=== PATIENT | male | born 1960 | race Caucasian/White ===

== ENCOUNTER 2017-01-01 17:06 | Emergency (ER) | payer BC, OTHER ==
--- NOTE | 2017-01-01 17:36 | ERPHSYRPT ---
- History of Present Illness Time Seen by Provider: 01/01/17 17:29 Source: patient Exam Limitations: no limitations Patient Subjective Stated Complaint: pt states he was treated for the flu 1 week ago. states he started on tamiflu on wednesday and began throwing up on . states he has had diarrhea a few times. Triage Nursing Assessment: pt pink, warm, dry. bowel sounds present in all 4 quads. pt afebrile. Physician History: The patient is a 56-year-old male with his complaining of nausea vomiting for 3 days and a small amount of diarrhea. He is lightheaded when he stands up. He hasn't had much to eat or drink and these past 3 days. 4 days ago he saw his primary care physician and was given Tamiflu for a clinical diagnosis of influenza. He began to feel better after 2 days on Tamiflu, but now has felt worse due to the vomiting. He denies any fever or chills or sore throat or cough. His past medical history is significant for high blood pressure and high cholesterol. Timing/Duration: day(s) (3) Severity: severe Modifying Factors: Improves With: eating Associated Symptoms: nausea, vomiting Allergies/Adverse Reactions: cefaclor [From [facility]] Allergy (Verified 01/01/17 17:19) Home Medications: Aspirin 81 mg PO DAILY 01/01/17 [History] Oseltamivir 75 mg [Tamiflu 75MG Capsule] 75 mg PO DAILY 01/01/17 [History] Pravastatin Sodium 20 mg PO HS 01/01/17 [History] Telmisartan/Hydrochlorothiazid [Telmisartan-Hctz 80-25 mg Tab] 1 each PO DAILY 01/01/17 [History] Hx Tetanus, Diphtheria Vaccination/Date Given: Yes ([place]) Hx Influenza Vaccination/Date Given: No Hx Pneumococcal Vaccination/Date Given: No Immunizations Up to Date: Yes - Review of Systems Constitutional: No Fever, No Chills Eyes: No Symptoms Ears, Nose, & Throat: No Symptoms Respiratory: No Cough, No Dyspnea Cardiac: No Chest Pain, No Edema, No Syncope Abdominal/Gastrointestinal: Nausea, Vomiting, Diarrhea Genitourinary Symptoms: No Dysuria Musculoskeletal: No Back Pain, No Neck Pain Skin: No Rash Neurological: No Dizziness, No Focal Weakness, No Sensory Changes Psychological: No Symptoms Endocrine: No Symptoms Hematologic/Lymphatic: No Symptoms Immunological/Allergic: No Symptoms All Other Systems: Reviewed and Negative - Past Medical History Pertinent Past Medical History: Yes Cardiac History: High Cholesterol, Hypertension - Past Surgical History Past Surgical History: Yes Other Surgical History: ear surgery - Social History Smoking Status: Never smoker Exposure to second hand smoke: No Drug Use: none Patient Lives Alone: No - Nursing Vital Signs Nursing Vital Signs: Initial Vital Signs Temperature 98.9 F Temperature Source Oral Pulse Rate 65 Respiratory Rate 18 Blood Pressure [Right Arm] 120/73 Pain Intensity 6 - Physical Exam General Appearance: mild distress Eye Exam: PERRL/EOMI, eyes nml inspection Ears, Nose, Throat Exam: normal ENT inspection, TMs normal, pharynx normal, moist mucous membranes Neck Exam: normal inspection, non-tender, supple, full range of motion Respiratory Exam: normal breath sounds, lungs clear, No respiratory distress Cardiovascular Exam: regular rate/rhythm, normal heart sounds, normal peripheral pulses Gastrointestinal/Abdomen Exam: soft, normal bowel sounds, No tenderness, No mass Rectal Exam: not done Back Exam: normal inspection, normal range of motion, No CVA tenderness, No vertebral tenderness Extremity Exam: normal inspection, normal range of motion, pelvis stable Neurologic Exam: alert, oriented x 3, cooperative, normal mood/affect, nml cerebellar function, nml station & gait, sensation nml, No motor deficits Skin Exam: normal color, warm, dry, No rash Lymphatic Exam: No adenopathy SpO2 Interpretation: normal SpO2: 96 Oxygen Delivery: Room Air Ordered Tests: Active Orders 24 hr Category Date Time Status IV Insertion STAT Care 01/01/17 17:40 Active CBC W DIFF Stat Lab 01/01/17 17:48 Completed CMP Stat Lab 01/01/17 17:48 Completed Medication Summary Discontinued Medications Generic Name Dose Route Start Last Admin Trade Name Freq PRN Reason Stop Dose Admin Sodium Chloride 1,000 mls @ 999 mls/hr 01/01/17 17:40 01/01/17 17:46 Sodium Chloride 0.9% 1000 Ml IV 01/01/17 18:40 999 mls/hr .Q1H1M STA Administration Sodium Chloride Confirm 01/01/17 17:44 Sodium Chloride 0.9% 1000 Ml Administered 01/01/17 17:45 Dose 1,000 mls @ ud .ROUTE .STK-MED ONE Ondansetron HCl 4 mg 01/01/17 17:40 01/01/17 17:46 Zofran 4 Mg/2 Ml Vial IV 01/01/17 17:41 4 mg STAT ONE Administration Ondansetron HCl Confirm 01/01/17 17:44 Zofran 4 Mg/2 Ml Vial Administered 01/01/17 17:45 Dose 4 mg .ROUTE .STK-MED ONE Lab/Rad Data: Laboratory Result Diagrams 01/01/17 17:48 01/01/17 17:48 Laboratory Results 01/01/17 01/01/17 Range/Units 17:48 17:48 WBC 4.0 (4.0-10.5) K/mm3 RBC 4.83 (4.1-5.6) M/mm3 Hgb 14.9 (12.5-18.0) gm/dl Hct 42.6 (42-50) % MCV 88.2 (78-100) fl MCH 30.8 (26-32) pg MCHC 35.0 (32-36) g/dl RDW 12.2 (11.5-14.0) % Plt Count 210 (150-450) K/mm3 MPV 9.6 H (6-9.5) fl Gran % 69.6 H (36.0-66.0) % Lymphocytes % 20.8 L (24.0-44.0) % Monocytes % 8.3 (0.0-12.0) % Eosinophils % 1.3 (0.00-5.0) % Basophils % 0.0 (0.0-0.4) % Basophils # 0 (0-0.4) Sodium 137 (136-145) mEq/L Potassium 3.7 (3.5-5.1) mEq/L Chloride 99 (98-107) mEq/L Carbon Dioxide 25.7 (21-32) mEq/L Anion Gap 15.8 H (5-15) MEQ/L BUN 17 (9-20) mg/dL Creatinine 1.21 (0.55-1.30) mg/dl Estimated GFR > 60 ML/MIN Glucose 126 H (70-110) MG/DL Calcium 9.1 (8.5-10.1) mg/dL Total Bilirubin 0.5 (0.2-1.0) mg/dL AST 46 H (15-37) U/L ALT 59 (12-78) U/L Alkaline Phosphatase 80 (46-116) U/L Serum Total Protein 7.4 (6.4-8.2) gm/dL Albumin 3.8 (3.4-5.0) g/dL - Progress Progress: improved Counseled pt/family regarding: lab results, diagnosis - Departure Time of Disposition: 18:57 Departure Disposition: Home Clinical Impression: Vomiting and diarrhea, Dehydration Condition: Stable Critical Care Time: No Additional Instructions: You had nausea and vomiting with some dehydration that was treated with Zofran 4 mg IV and IV fluids in the ER. You're given a prescription for Zofran 4 mg ODT to be taken every 6 hours as needed for nausea and vomiting. Begin with clear liquid fluids as diet and advance as tolerated. Prescriptions: Ondansetron [Zofran Odt] 4 mg PO Q6HPRN PRN #10 tab.rapdis PRN Reason: Nausea/Vomiting
[2017-01-01] MEDS ORDERED: Zofran 4 MG/2 ML VIAL IV ONE (17:40)
[2017-01-01] MEDS ORDERED: Sodium Chloride 0.9% 1000 ML 1,000 ML IV STA (17:40)
[2017-01-01] MEDS ORDERED: Zofran 4 MG/2 ML VIAL ONE (17:44)
[2017-01-01] MEDS ORDERED: Sodium Chloride 0.9% 1000 ML 1,000 ML ONE (17:44)
[2017-01-01 17:52] LABS: Eosinophil % 1.3 % (0.00-5.0); Granulocytes % 69.6 % (36.0-66.0); Lymphocytes % 20.8 % (24.0-44.0); Mean Cell Volume 88.2 fl (78-100); Mean Corpuscular Hemoglobin 30.8 pg (26-32); Mean Platelet Volume 9.6 fl (6-9.5); Monocytes % 8.3 % (0.0-12.0); Platelet Count 210 K/mm3 (150-450); Red Blood Count 4.83 M/mm3 (4.1-5.6); Red Cell Distribution Width 12.2 % (11.5-14.0)
[2017-01-01 18:12] LABS: ALBUMIN 3.8 g/dL (3.4-5.0); ALKALINE PHOSPHATASE 80 U/L (46-116); ANION GAP 15.8 MEQ/L (5-15); BILIRUBIN,TOTAL 0.5 mg/dL (0.2-1.0); BLOOD UREA NITROGEN 17 mg/dL (9-20); CHLORIDE 99 mEq/L (98-107); Carbon Dioxide 25.7 mEq/L (21-32); Glucose 126 MG/DL (70-110); Potassium 3.7 mEq/L (3.5-5.1); SGOT/AST 46 U/L (15-37); SGPT/ALT 59 U/L (12-78); SODIUM 137 mEq/L (136-145); Total Protein 7.4 gm/dL (6.4-8.2)
[2017-01-01 19:18] VITALS: BP 126/70; PULSE 70; O2SAT 100
== END 2017-01-01 19:18 | disposition home or self-care (01) ==
LOC: ED 17:06
DX: R11.2 Nausea with vomiting, unspecified (principal); E86.0 Dehydration; R19.7 Diarrhea, unspecified; R42 Dizziness and giddiness; I10 Essential (primary) hypertension; E78.00 Pure hypercholesterolemia, unspecified; Z79.899 Other long term (current) drug therapy
CPT/HCPCS: 36000; 36415; 80053; 85025; 96360; 96374; 99283; 99284; J2405

== ENCOUNTER 2019-07-10 09:23 | Emergency (ER) | payer BC ==
[2019-07-10] MEDS ORDERED: Hydromorphone 1 mg/ml Ampule IM ONE (09:42)
[2019-07-10] MEDS ORDERED: TORAdol 30 mg Injection IM ONE (09:42)
[2019-07-10] MEDS ORDERED: TORAdol 30 mg Injection ONE (09:48)
--- NOTE | 2019-07-10 09:48 | ERPHSYRPT ---
- History of Present Illness Time Seen by Provider: 07/10/19 09:35 Source: patient Exam Limitations: no limitations Patient Subjective Stated Complaint: pt states sat, he bent over to pet a dog and that started having lower back pain, he has tried ice,heat and tylenol. Triage Nursing Assessment: pt alert, arrived per , assist of one to get from wc to bed, resp easy, skin w/d/p Physician History: Patient has a history of degenerative disc disease in his lower back for over 37 year who bent over to pet a dog 2 days ago and has had low back pain since that time on the right side. Patient has no recent treatments for his back pain and he has no history of receiving epidural injections to help with his back pain. Timing/Duration: day(s) (2) Method of Injury: bending Quality: stabbing Back Pain Location: lumbar spine (right side) Back Pain Radiation: buttocks (right side) Severity of Pain-Max: severe Severity of Pain-Current: severe Modifying Factors: Improves With: immobilization, pain medication (Tylenol has helped), rest. Worsens With: movement Associated Symptoms: lower back pain, No fever, No chills, No sweating, No urinary incontinence, No loss of bowel control, No constipation, No nausea, No vomiting, No problems urinating, No light-headedness, No dizziness, No numbness in legs/feet, No weakness, No sensory/motor loss, No tingling in legs/feet, No muscle spasms Previous symptoms: same symptoms as today, no recent treatment Allergies/Adverse Reactions: cefaclor [From [facility]] Allergy (Verified 07/10/19 09:35) Home Medications: Aspirin 81 mg PO DAILY 01/01/17 [History] Pravastatin Sodium 20 mg PO HS 01/01/17 [History] Telmisartan/Hydrochlorothiazid [Telmisartan-Hctz 80-25 mg Tab] 1 each PO DAILY 01/01/17 [History] Hx Tetanus, Diphtheria Vaccination/Date Given: No Hx Influenza Vaccination/Date Given: No Hx Pneumococcal Vaccination/Date Given: No Immunizations Up to Date: Yes - Review of Systems Constitutional: No Fever, No Chills, No Fatigue Respiratory: No Cough, No Dyspnea Cardiac: No Chest Pain, No Palpitations, No Syncope Abdominal/Gastrointestinal: No Abdominal Pain, No Nausea, No Vomiting, No Diarrhea, No Constipation, No Hematemesis, No Hematochezia, No Melena Genitourinary Symptoms: No Dysuria, No Frequency, No Hematuria, No Urinary Retention, No Flank Pain, No Testicle Pain Musculoskeletal: Back Pain, No Arthralgias, No Neck Pain, No Joint Pain, No Joint Swelling, No Myalgias Skin: No Pruritis, No Rash Neurological: No Dizziness, No Focal Weakness, No Headache, No Lethargy, No Paralysis, No Parasthesia, No Sensory Changes, No Tremors Psychological: No Anxiety, No Emotional Lability Endocrine: No Polyuria, No Excessive Sweating Hematologic/Lymphatic: No Easy Bleeding, No Easy Bruising All Other Systems: Reviewed and Negative - Past Medical History Pertinent Past Medical History: Yes Cardiac History: Hypertension Musculoskeletal History: Degenerative Disk Disease - Past Surgical History Past Surgical History: Yes Other Surgical History: ears - Social History Smoking Status: Never smoker Exposure to second hand smoke: No Drug Use: none Patient Lives Alone: No - Nursing Vital Signs Nursing Vital Signs: Initial Vital Signs Temperature 97.8 F 07/10/19 09:26 Pulse Rate 73 07/10/19 09:26 Respiratory Rate 16 07/10/19 09:26 Blood Pressure 136/85 07/10/19 09:26 O2 Sat by Pulse Oximetry 97 07/10/19 09:26 Pain Scale Pain Intensity [Back] 10 Pain Intensity 2 - Physical Exam General Appearance: no apparent distress, alert Eye Exam: PERRL/EOMI, eyes nml inspection, No scleral icterus Ears, Nose, Throat Exam: pharynx normal, moist mucous membranes Neck Exam: normal inspection, non-tender, supple, full range of motion, No meningismus, No Brudzinski, No JVD, No limited range of motion, No midline tenderness Respiratory Exam: normal breath sounds, lungs clear, airway intact, No chest tenderness, No respiratory distress, No diminished breath sounds, No accessory muscle use, No prolonged expirations, No crackles/rales, No rhonchi, No wheezing , No stridor, No pleural rub Cardiovascular Exam: regular rate/rhythm, normal heart sounds, normal peripheral pulses, capillary refill <2 sec Gastrointestinal Exam: soft, normal bowel sounds, No tenderness, No distention, No mass, No guarding, No pulsatile mass, No rebound, No organomegaly Back Exam: normal inspection, decreased range of motion, muscle spasm (right lumbar paraspinal), No CVA tenderness, No vertebral tenderness Extremity Exam: normal inspection, normal range of motion, pelvis stable, No calf tenderness, No deformities, No ruby's sign, No inflammation, No swelling Neurologic Exam: alert, oriented x 3, cooperative, television servicer II-XII nml as tested, normal mood/affect, nml cerebellar function, sensation nml, No motor deficits, No sensory deficit, No motor weakness Skin Exam: normal color, warm, dry, rash, No petechiae, No cyanosis, No ecchymosis SpO2 Interpretation: normal SpO2: 97 O2 Delivery: Room Air Ordered Tests: Active Orders 24 hr Category Date Time Status IV Insertion STAT Care 07/10/19 11:36 Active Medication Summary Discontinued Medications Generic Name Dose Route Start Last Admin Trade Name Freq PRN Reason Stop Dose Admin Diphenhydramine HCl 25 mg 07/10/19 10:54 07/10/19 10:57 Benadryl 50 Mg/Ml IM 07/10/19 10:55 25 mg STAT ONE Administration Diphenhydramine HCl Confirm 07/10/19 10:55 Benadryl 50 Mg/Ml Administered 07/10/19 10:56 Dose 50 mg .ROUTE .STK-MED ONE Diphenhydramine HCl 25 mg 07/10/19 11:36 07/10/19 12:12 Benadryl 50 Mg/Ml IV 07/10/19 11:37 25 mg STAT ONE Administration Diphenhydramine HCl Confirm 07/10/19 12:08 Benadryl 50 Mg/Ml Administered 07/10/19 12:09 Dose 50 mg .ROUTE .STK-MED ONE Famotidine 20 mg 07/10/19 11:36 07/10/19 12:12 Pepcid 20 Mg Vial IV 07/10/19 11:37 20 mg STAT ONE Administration Famotidine Confirm 07/10/19 12:08 Pepcid 20 Mg Vial Administered 07/10/19 12:09 Dose 20 mg IV .STK-MED ONE Hydromorphone HCl 2 mg 07/10/19 09:42 07/10/19 09:55 Hydromorphone 1 Mg/Ml Ampule IM 07/10/19 09:43 2 mg STAT ONE Administration Hydromorphone HCl Confirm 07/10/19 09:49 Hydromorphone 1 Mg/Ml Ampule Administered 07/10/19 09:50 Dose 2 mg .ROUTE .STK-MED ONE Sodium Chloride 1,000 mls @ 999 mls/hr 07/10/19 11:36 07/10/19 12:12 Sodium Chloride 0.9% 1000 Ml IV 07/10/19 12:36 999 mls/hr .Q1H1M STA Administration Sodium Chloride Confirm 07/10/19 12:08 Sodium Chloride 0.9% 1000 Ml Administered 07/10/19 12:09 Dose 1,000 mls @ ud .ROUTE .STK-MED ONE Ketorolac Tromethamine 60 mg 07/10/19 09:42 07/10/19 09:56 Toradol 30 Mg Injection IM 07/10/19 09:43 60 mg STAT ONE Administration Ketorolac Tromethamine Confirm 07/10/19 09:48 Toradol 30 Mg Injection Administered 07/10/19 09:49 Dose 60 mg .ROUTE .STK-MED ONE Ondansetron HCl 4 mg 07/10/19 10:28 07/10/19 10:31 Zofran Odt 4 Mg PO 07/10/19 10:29 4 mg STAT ONE Administration Ondansetron HCl Confirm 07/10/19 10:30 Zofran Odt 4 Mg Administered 07/10/19 10:31 Dose 4 mg .ROUTE .STK-MED ONE Ondansetron HCl 4 mg 07/10/19 11:36 07/10/19 12:22 Zofran 4 Mg/2 Ml Vial IV 07/10/19 11:37 4 mg STAT ONE Administration Ondansetron HCl Confirm 07/10/19 12:21 Zofran 4 Mg/2 Ml Vial Administered 07/10/19 12:22 Dose 4 mg .ROUTE .STK-MED ONE - Progress Progress: improved Progress Note: 07/10/19 10:27 the patient's pain is significantly improved but has some nausea. Patient has no neurovascular deficits in the lower extremities bilaterally. 07/10/19 10:43 Still having some nausea. We will continue to monitor. The nausea is most likely from medication adverse effect from the Dilaudid. 07/10/19 10:55 Nausea is improving, but still present. Patient feels symptoms when he closes his eyes. I will give Benadryl 25mg IM times one. No respiratory distress or hypoxia. 07/10/19 12:25 Patient recently received his medications and IV fluids. He still has some nausea. 07/10/19 12:46 Nausea has significantly improved with IV hydration and medication. Nausea most likely due to IM Dilaudid. Patient will be discharged as medications sent to his pharmacy for pain and nausea control. Counseled pt/family regarding: diagnosis, need for follow-up - Departure Departure Disposition: Home Clinical Impression: Nausea alone, History of degenerative disc disease, Essential hypertension Acute lumbosacral myofascial strain Qualifiers: Encounter type: initial encounter Qualified Code(s): S39.012A - Strain of muscle, fascia and tendon of lower back, initial encounter Condition: Good Critical Care Time: No Referrals: SALOME MAYO MD [Primary Care Provider] - 07/12/19 Instructions: Low Back Pain (DC), Lumbar Muscle Strain (DC), Degenerative Disc Disease (DC), Back Stretches Standing or Seated Additional Instructions: Return immediately to the emergency department if you have any new fever, new abdominal pain, new loss of sensation/new numbness, new muscle weakness, new urinary retention, new diarrhea you can not control, worsening back pain, new skin rashes or any other concerning signs or symptoms that were not present at today's emergency department visit for immediate re-evaluation in the emergency department. You may continue your Tylenol for pain control or use the prescriptions sent to the pharmacy to continue with pain control. Prescriptions: Ondansetron ODT 4 MG [Zofran Odt 4 mg] 4 mg PO Q8H PRN PRN #10 tab.rapdis PRN Reason: Nausea Etodolac 400 mg [Lodine 400 mg] 400 mg PO BID PRN PRN #20 tablet PRN Reason: Pain Tizanidine HCl 4 mg [Zanaflex 4 MG] 4 mg PO TID PRN #12 tablet PRN Reason: Muscle Spasms
[2019-07-10] MEDS ORDERED: Hydromorphone 1 mg/ml Ampule ONE (09:49)
[2019-07-10] MEDS ORDERED: ZOFRAN ODT 4 MG PO ONE (10:28)
[2019-07-10] MEDS ORDERED: ZOFRAN ODT 4 MG ONE (10:30)
[2019-07-10] MEDS ORDERED: BENADRYL 50 MG/ML IM ONE (10:54)
[2019-07-10] MEDS ORDERED: BENADRYL 50 MG/ML ONE ×2 (10:55→12:08)
[2019-07-10] MEDS ORDERED: BENADRYL 50 MG/ML IV ONE (11:36)
[2019-07-10] MEDS ORDERED: Zofran 4 MG/2 ML VIAL IV ONE (11:36)
[2019-07-10] MEDS ORDERED: Pepcid 20 MG VIAL IV ONE ×2 (11:36→12:08)
[2019-07-10] MEDS ORDERED: Sodium Chloride 0.9% 1000 ML 1,000 ML IV STA (11:36)
[2019-07-10 11:47] VITALS: PULSE 51
[2019-07-10] MEDS ORDERED: Sodium Chloride 0.9% 1000 ML 1,000 ML ONE (12:08)
[2019-07-10] MEDS ORDERED: Zofran 4 MG/2 ML VIAL ONE (12:21)
[2019-07-10 12:30] VITALS: O2SAT 97
[2019-07-10 12:45] VITALS: BP 110/73
== END 2019-07-10 13:26 | disposition home or self-care (01) ==
LOC: ED 09:23
DX: R11.0 Nausea (principal); I10 Essential (primary) hypertension; S39.012A Strain of muscle, fascia and tendon of lower back, initial encounter; M51.36 Other intervertebral disc degeneration, lumbar region
CPT/HCPCS: 36000; 96360; 96372; 96374; 96375; 99284; J1170; J1200; J1885; J2405; Q0162

== ENCOUNTER 2020-11-20 10:08 | Day surgery (SDC) | payer OTHER ==
[2020-11-20] MEDS ORDERED: Depo-Medrol 40 MG/ML IM ONE (10:09)
[2020-11-20] MEDS ORDERED: Sodium Chloride 0.9(Preservative Free) 10 ML IJ ONE (10:09)
[2020-11-20] MEDS ORDERED: DIPRIVAN 200 MG/20 ML IV ONE (11:26)
[2020-11-20] MEDS ORDERED: Ketamine HCl 50 MG/ML ONE (11:28)
--- NOTE | 2020-11-20 12:42 | XRAY ---
Indication: Left L4-S1 transforaminal CORTEZ Intraoperative fluoroscopy provided for 21 seconds. 3 digital spot images submitted for interpretation demonstrates posterior needle tips projecting over the expected left L4 and L5 nerve roots. Small amount of contrast injected for needle tip placement. Correlate with intraoperative findings/report.
--- NOTE | 2020-11-20 12:46 | XRAY ---
21 seconds fluoroscopy time in surgery for left L4-S1 transforaminal CORTEZ.
[2020-11-20] MEDS ORDERED: Lactated Ringers 1,000 ML IV ONE (16:12)
== END 2020-11-20 12:00 | disposition home or self-care (01) ==
LOC: SDC-PAIN 10:08
PROVIDERS: ATTEND Psychiatry & Neurology Pain Medicine
DX: M54.16 Radiculopathy, lumbar region (principal); I10 Essential (primary) hypertension; E78.5 Hyperlipidemia, unspecified
CPT/HCPCS: 64483; 64484; 72100; 77003; J1030; J2704; Q9966

== ENCOUNTER 2021-09-29 08:18 | Emergency (ER) | payer OTHER ==
[2021-09-29] MEDS ORDERED: DECADRON 10MG INJ. IM ONE (08:25)
[2021-09-29] MEDS ORDERED: TORAdol 30 mg Injection IM ONE (08:25)
[2021-09-29] MEDS ORDERED: TYLENOL 325 MG PO ONE (08:26)
[2021-09-29] MEDS ORDERED: TORAdol 30 mg Injection ONE (08:27)
[2021-09-29] MEDS ORDERED: DECADRON 10MG INJ. ONE (08:28)
[2021-09-29] MEDS ORDERED: TYLENOL 325 MG ONE (08:28)
--- NOTE | 2021-09-29 08:32 | ERPHSYRPT ---
- History of Present Illness Time Seen by Provider: 09/29/21 08:30 Source: patient Physician History: Patient is a 61-year-old male with a history of chronic back pain/sciatica/bulging disks presents to our ED with exacerbation of his back pain. 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 Patient states that certain movements typically exacerbate his back pain. Patient's pain is the same as his usual back pain exacerbations. Patient is experiencing pain down his left leg. Patient has had extensive work-up of his chronic low back pain. Work-up is included MRI. He is currently seeing a pain specialist for management of his chronic back pain. Patient states he takes pain medication as needed. Pain is radiating down his left leg. No abdominal pain. No chest pain. No shortness of breath. No lower extremity numbness tingling or weakness. No saddle anesthesia. No change in bowel bladder function. No recent back procedures. No fever. Symptoms are moderate in intensity. Movement reproduces symptoms. P ain improved with rest. Patient voices no other complaints or concerns at this time. Timing/Duration: today Method of Injury: other (Patient was leaning forward and twisting when pain occurred.) Quality: radiating, aching Back Pain Location: lumbar spine Back Pain Radiation: lower legs (Radiation to left lower extremity.) Severity of Pain-Max: moderate Severity of Pain-Current: mild Modifying Factors: Improves With: movement Associated Symptoms: muscle spasms, No fever, No urinary incontinence, No loss of bowel control, No nausea, No vomiting, No problems urinating, No light- headedness, No dizziness, No weakness Previous symptoms: same symptoms as today Allergies/Adverse Reactions: cefaclor [From Ceclor] Allergy (Verified 09/29/21 08:21) Home Medications: Aspirin 81 mg PO DAILY 01/01/17 [History] Pravastatin Sodium 20 mg PO HS 01/01/17 [History] Telmisartan/Hydrochlorothiazid [Telmisartan-Hctz 80-25 mg Tab] 1 each PO DAILY 01/01/17 [History] Hx Tetanus, Diphtheria Vaccination/Date Given: No Hx Influenza Vaccination/Date Given: No Hx Pneumococcal Vaccination/Date Given: No - Review of Systems Constitutional: No Symptoms, No Fever, No Chills Eyes: No Symptoms Ears, Nose, & Throat: No Symptoms Respiratory: No Symptoms, No Cough, No Dyspnea Cardiac: No Symptoms, No Chest Pain, No Edema, No Syncope Abdominal/Gastrointestinal: No Symptoms, No Abdominal Pain, No Nausea, No Vomiting, No Diarrhea Genitourinary Symptoms: No Symptoms, No Dysuria Musculoskeletal: No Symptoms, No Back Pain, No Neck Pain Skin: No Symptoms, No Rash Neurological: No Symptoms, No Dizziness, No Focal Weakness, No Sensory Changes Psychological: No Symptoms Endocrine: No Symptoms Hematologic/Lymphatic: No Symptoms Immunological/Allergic: No Symptoms All Other Systems: Reviewed and Negative - Past Medical History Pertinent Past Medical History: Yes Neurological History: No Pertinent History Cardiac History: High Cholesterol, Hypertension Respiratory History: No Pertinent History Endocrine Medical History: No Pertinent History Musculoskeletal History: Degenerative Disk Disease, Fractures Other Medical History: NO OTHER SIGNIFICANT PMHX - Past Surgical History Past Surgical History: Yes Other Surgical History: ears - Social History Smoking Status: Never smoker Exposure to second hand smoke: No Drug Use: none Patient Lives Alone: No - Nursing Vital Signs Nursing Vital Signs: Initial Vital Signs Temperature 97.8 F 09/29/21 08:21 Pulse Rate 80 09/29/21 08:21 Respiratory Rate 18 09/29/21 08:21 Blood Pressure 142/88 09/29/21 08:21 O2 Sat by Pulse Oximetry 97 09/29/21 08:21 Pain Scale Pain Intensity 6 - Physical Exam General Appearance: no apparent distress, alert Eye Exam: PERRL/EOMI, eyes nml inspection Ears, Nose, Throat Exam: normal ENT inspection, TMs normal, pharynx normal Neck Exam: normal inspection, non-tender, supple, full range of motion, No meningismus, No midline tenderness Respiratory Exam: normal breath sounds, lungs clear, airway intact, No respiratory distress Cardiovascular Exam: regular rate/rhythm, normal heart sounds, normal peripheral pulses Gastrointestinal Exam: soft, normal bowel sounds, other (No pulsatile abdominal masses), No tenderness, No mass Back Exam: normal inspection, decreased range of motion, muscle spasm, other (Bilateral lumbar paraspinal musculature spasms.), No point tenderness Extremity Exam: normal inspection, normal range of motion, No calf tenderness, No pedal edema Peripheral Pulses: dorsalis-pedis (R): 2+, dorsalis-pedis (L): 2+ Neurologic Exam: alert, oriented x 3, cooperative, internal controls specialist II-XII nml as tested, normal mood/affect, nml station & gait, sensation nml, No motor deficits Skin Exam: normal color, warm, dry, No rash SpO2 Interpretation: normal SpO2: 97 O2 Delivery: Room Air - Course Nursing assessment & vital signs reviewed: Yes Ordered Tests: Medication Summary Discontinued Medications Generic Name Dose Route Start Last Admin Trade Name Bro PRN Reason Stop Dose Admin Acetaminophen 975 mg 09/29/21 08:26 09/29/21 08:32 Acetaminophen 325 Mg Tablet PO 09/29/21 08:27 975 mg STAT ONE Administration Acetaminophen Confirm 09/29/21 08:28 Acetaminophen 325 Mg Tablet Administered 09/29/21 08:29 Dose 975 mg .ROUTE .STK-MED ONE Dexamethasone Sodium Phosphate 8 mg 09/29/21 08:25 09/29/21 08:32 Dexamethasone Sod Phosphate 10 Mg/Ml IM 09/29/21 08:26 8 mg STAT ONE Administration Dexamethasone Sodium Phosphate Confirm 09/29/21 08:28 Dexamethasone Sod Phosphate 10 Mg/Ml Administered 09/29/21 08:29 Dose 10 mg .ROUTE .STK-MED ONE Ketorolac Tromethamine 60 mg 09/29/21 08:25 09/29/21 08:31 Ketorolac Tromethamine 30 Mg/Ml Inj IM 09/29/21 08:26 60 mg STAT ONE Administration Ketorolac Tromethamine Confirm 09/29/21 08:27 Ketorolac Tromethamine 30 Mg/Ml Inj Administered 09/29/21 08:28 Dose 60 mg .ROUTE .STK-MED ONE - Progress Progress: improved Progress Note: Patient reassessed. Pain significantly improved. Patient is not ambulatory. Patient walked throughout our ED using a rolling walker. Patient states he is ready for discharge. He has a walker at home. No indication for imaging studies. There is no trauma involved. Symptoms are typical patient's usual acute on chronic back pain. No fever. No saddle anesthesia. No lower extremity weakness. No change in bowel bladder function. Patient has pain medication at home. Patient sees a pain specialist Dr. Conner. Will discharge at this time. Patient agrees to follow-up with his primary care doctor within 48 hours for reevaluation. He voices no other complaints or concerns at this time. No chest pain. No shortness of breath. No abdominal pain. Portions of this note were created with voice recognition technology. There may be grammatical, spelling, punctuation or sound alike errors 09/29/21 11:26 09/29/21 11:27 Counseled pt/family regarding: diagnosis, need for follow-up - Departure Departure Disposition: Home Clinical Impression: Lumbosacral strain, Acute exacerbation of chronic low back pain Condition: Stable Critical Care Time: No Referrals: SALOME MAYO MD [Primary Care Provider] - Follow up/PCP as directed Additional Instructions: Discharge/Care Plan FARIBA SALGADO was seen on 09/29/21 in the Emergency Room. The patient was counseled regarding Diagnosis,Lab results, Imaging studies, need for follow up and when to return to the Emergency Room. Prescriptions given: Discharge Note I have spoken with the patient and/or caregivers. I have explained the patient's condition, diagnosis and treatment plan based on the information available to me at this time. I have answered the patient's and/or caregiver's questions and addressed any concerns. The patient and/or caregivers have as good understanding of the patient's diagnosis, condition and treatment plan as can be expected at this point. The vital signs have been stable. The patient's condition is stable and appropriate for discharge from the emergency department. The patient will pursue further outpatient evaluation with the primary care physician or other designated or consulting physician as outlined in the discharge instructions. The patient and/or caregivers are agreeable to this plan of care and follow-up instructions have been explained in detail. The patient and/or caregivers have received these instruction. The patient/and or caregivers are aware that any significant change in condition or worsening of symptoms should prompt an immediate return to this or the closest emergency department or call 911.
[2021-09-29 11:50] VITALS: BP 138/76; PULSE 86; O2SAT 98
== END 2021-09-29 11:44 | disposition home or self-care (01) ==
LOC: ED 08:18
DX: S39.012A Strain of muscle, fascia and tendon of lower back, initial encounter (principal); X50.1XXA Overexertion from prolonged static or awkward postures, initial encounter; G89.29 Other chronic pain; M54.42 Lumbago with sciatica, left side; E78.5 Hyperlipidemia, unspecified; I10 Essential (primary) hypertension
CPT/HCPCS: 96372; 99284; J1100; J1885; A9270-GY